=== PATIENT | female | born 1965 | race Caucasian/White ===

== ENCOUNTER → 2016-12-27 | Outpatient (CLI) | payer BC ==
--- NOTE | 2016-12-27 10:53 | RAD ---
EXAM: Left shoulder 3 views. HISTORY: Left shoulder pain. COMPARISON: None. FINDINGS: No fractures are identified. Acromioclavicular and glenohumeral joint spaces and alignment are maintained. IMPRESSION: 1. No fracture or clear degenerative change.
== END | disposition home or self-care (01) ==
LOC: RAD 09:17
PROVIDERS: ATTEND Physician Assistant Medical
DX: M25.512 Pain in left shoulder (principal)
CPT/HCPCS: 73030